=== PATIENT | female | born 1940 | race Caucasian/White ===

== ENCOUNTER 2018-08-11 01:00 | Emergency (ER) | payer MEDICARE, OTHER ==
[2015-10-19 11:54] VITALS: BP 158/71
[2018-08-20 18:27] LABS: BASOPHILS % 0.7 % (0.0-1.5); eGFR (Non-African) > 60
== END 2018-08-11 03:51 ==
LOC: ED 01:00
DX: K51.00 Ulcerative (chronic) pancolitis without complications (principal); E86.9 Volume depletion, unspecified; E86.0 Dehydration
CPT/HCPCS: 36415; 74177; 80053; 82150; 82550; 82553; 83605; 83690; 84484; 85025; 87040; 87045; 87046; 87427; 96361; 96374; 96375; 99283; 99284; S1016